=== PATIENT | male | born 1990 | race Caucasian/White ===

== ENCOUNTER 2020-07-01 01:06 | Emergency (ER) | payer OTHER | END 2020-07-01 05:20 | disposition home or self-care (01) | LOC: FER 01:06 | DX: S02.2XXA Fracture of nasal bones, initial encounter for closed fracture (principal); S02.5XXA Fracture of tooth (traumatic), initial encounter for closed fracture; Z23 Encounter for immunization; Y04.8XXA Assault by other bodily force, initial encounter | CPT/HCPCS: 70160; 90471; 90715 ==